=== PATIENT | female | born 1945 | race Caucasian/White ===

== ENCOUNTER → 2016-06-14 | Outpatient (CLI) | payer MEDICARE ==
[~2016-06-14] MED LIST: AMLODIPINE BESY10 MG PO; ASPIRIN81 M2 PO; CALCIUM + D SO1 EACH PO; CO Q-10200 MG PO; FISH OIL 1,0001 EAC3 PO; LOZOL2.5 M1 PO; METOPROLOL SUCC50 MG PO; MULTI VITAMIN1 EACH PO
--- NOTE | ~2016-06-14 | MR83 ---
[facility] A Service of [facility] & [facility] RADIOLOGY TEXT RESULTS PATIENT: TINA PALOMARES LOCATION: [facility] : 43 UNIT #: [id number] AGE: [address]: Hitesh Gallardo MD SEX: F ORDER DR: [id number] [address] [address] [id number] O MR#: [id number] Acc #: [id number] NAME: TINA PALOMARES : 1945 SEX: F STUDY DATE/TIME: 06/14/2016 11:03 UNIT: [facility] ROOM: STUDY DESCRIPTION: MR Hip Wo Contrast Lt Attending Physician: Hitesh Gallardo M.D. Referring Physician: Hitesh Gallardo M.D. Ordering Physician: Hitesh Gallardo M.D. Primary Care Physician: Radha Gallardo M.D. MRI CENTER REPORT This report is preliminary unless electronic signature is present. EXAM MRI pelvis and hips, 06/14/2016. COMPARISON STUDIES Pelvis and left hip radiographs, 01/01/2012. HISTORY Order states left hip pain with tenderness. History sheet states a remote history of fall 10 years ago. Patient states she did the splits. Increasing left hip pain worse over the past year is not improving. Increasing pain. Difficulty with certain positions. No hip surgery. Date of injury 2005. No related surgery. There is advanced arthrosis of the left hip with diffuse joint space narrowing with essentially [id number] appearance, subarticular cysts, osteophyte formation, and mild marrow edema. There is no effusion or visible sizable loose body. The right hip demonstrates a mild arthrosis with posterior chondromalacia and a few small posterior acetabular subarticular cysts. There is no effusion or loose body. Hips show no avascular necrosis. There is a left greater than right anterior labral degeneration and/or tear. There is bilateral sacroiliac joint arthrosis without marrow edema or erosion. No focal marrow lesions or fracture is noted. Patient appears to have mildly prominent red marrow pattern. There is L4-5, L5-S1 advanced degenerative disc disease. [facility] A Service of [facility] & [facility] RADIOLOGY TEXT RESULTS PATIENT: TINA PALOMARES LOCATION: [facility] : 43 UNIT #: [id number] AGE: [address]: Hitesh Gallardo MD SEX: F ORDER DR: There is sigmoid diverticulosis and low signal presumed fibroids in the uterus. No hernia is identified. IMPRESSION 1. Advanced arthritic changes of the left hip detailed above. 2. Mild arthritic changes of the right hip. 3. No fracture or avascular necrosis. 4. Bilateral sacroiliac arthrosis. 5. Lower lumbar degenerative disc disease. 6. Diverticulosis. 7. Uterine fibroids. Dictated by... Maryann Spence M.D. THIS IS AN ELECTRONICALLY VERIFIED REPORT Maryann Spence M.D. at 06/15/2016 2:13 PM AARON/samina TD: 06/15/2016 13:13 JOB #: [id number] MRI CENTER REPORT Page 1 of 1
== END | disposition home or self-care (01) ==
LOC: SMRI 10:31
DX: M25.552 Pain in left hip (principal); M47.898 Other spondylosis, sacral and sacrococcygeal region; M51.36 Other intervertebral disc degeneration, lumbar region; K57.90 Diverticulosis of intestine, part unspecified, without perforation or abscess without bleeding; D25.9 Leiomyoma of uterus, unspecified
CPT/HCPCS: 73721

== ENCOUNTER 2016-08-09 12:04 | Emergency (ER) | payer MEDICARE ==
--- NOTE | ~2016-08-09 | CR141 ---
[facility] A Service of [facility] & [facility] RADIOLOGY TEXT RESULTS PATIENT: TINA PALOMARES LOCATION: SED : 43 UNIT #: [id number] AGE: [address]: DANNY MONGE SEX: F ORDER DR: [id number] [place] [id number] E MR#: [id number] Acc #: [id number] NAME: TINA PALOMARES : 1945 SEX: F STUDY DATE/TIME: 08/09/2016 12:24 UNIT: SED ROOM: STUDY DESCRIPTION: CR Hand Min 3 Views Lt Attending Physician: Danny Monge Ordering Physician: Ahsan Salazar M.D. Primary Care Physician: Radha Gallardo M.D. MEDICAL IMAGING REPORT This report is preliminary unless electronic signature is present. EXAM Left hand 3 views, 08/09/2016 CLINICAL HISTORY Finger pain and popping after injury last night. FINDINGS Mild swan-neck deformity of the long finger. No fracture is seen. There is no dislocation. There are minimal degenerative changes elsewhere in the hand. IMPRESSION Mild swan-neck deformity without fracture. Dictated by... Dallin Jason M.D. THIS IS AN ELECTRONICALLY VERIFIED REPORT Dallin Jason M.D. at 08/14/2016 12:15 PM TEV/samina TD: 08/09/2016 13:45 JOB #: [id number] MEDICAL IMAGING REPORT Page 1 of 1
[2016-08-09] MEDS ORDERED: LOZOL2.5 M1 PO (12:06)
[2016-08-09] MEDS ORDERED: METOPROLOL SUCC50 MG PO (12:06)
[2016-08-09] MEDS ORDERED: AMLODIPINE BESY10 MG PO (12:06)
[2016-08-09] MEDS ORDERED: FISH OIL 1,0001 EAC3 PO (12:07)
[2016-08-09] MEDS ORDERED: MULTI VITAMIN1 EACH PO (12:07)
[2016-08-09] MEDS ORDERED: CALCIUM + D SO1 EACH PO (12:07)
[2016-08-09] MEDS ORDERED: CO Q-10200 MG PO (12:07)
[2016-08-09] MEDS ORDERED: ASPIRIN81 M2 PO (12:07)
== END 2016-08-09 13:33 | disposition home or self-care (01) ==
LOC: SED 12:04
DX: S60.032A Contusion of left middle finger without damage to nail, initial encounter (principal); M20.032 Swan-neck deformity of left finger(s); I10 Essential (primary) hypertension; W23.0XXA Caught, crushed, jammed, or pinched between moving objects, initial encounter; Y92.009 Unspecified place in unspecified non-institutional (private) residence as the place of occurrence of the external cause
CPT/HCPCS: 29130; 73130; 99283